=== PATIENT | male | born 1995 | race African-American/Black ===

== ENCOUNTER 2022-10-09 08:37 | Emergency (ER) | payer OTHER ==
[2022-10-09] MEDS ORDERED: CLINDAMYCIN HCL 150 MG CAPSULE (FP) PO ONE (08:45)
[2022-10-09] MEDS ORDERED: CLINDAMYCIN HCL 150 MG CAPSULE (FP) ONE (08:51)
[2022-10-09 08:52] VITALS: BP 130/84; PULSE 53; RESP 18; TEMP 97.7; BMI 38.4
== END 2022-10-09 09:03 | disposition home or self-care (01) ==
LOC: FER 08:37
PROC: 0H9FXZZ Drainage of Right Hand Skin, External Approach (ICD-10-PCS; principal; 2022-10-09)
DX: L03.011 Cellulitis of right finger (principal); L02.511 Cutaneous abscess of right hand
CPT/HCPCS: 99283-25